=== PATIENT | male | born 1995 | race Two or more races ===

== ENCOUNTER 2017-10-16 23:26 | Emergency (ER) | payer BC, OTHER ==
[2017-10-17 02:23] VITALS: BP 135/81; PULSE 78; TEMP 98.1; BMI 26.4
--- NOTE | 2017-10-17 02:35 | PDOC ---
History of Present Illness - General History Source: Patient - History of Present Illness Initial Comments: 10/17/17 02:40 The patient is a 22 year old male, with no significant past medical history, who presents to the emergency department with vomiting and epigastric discomfort since 10/13/17. The patient reports feeling as if anything he takes PO gets stuck in his epigastric region. He reports nausea and vomiting with eating or drinking. He states he hasnt eaten much since the onset of his symptoms. He denies chest pain, shortness of breath, headache and dizziness. He denies fever, chills, diarrhea and constipation. He denies dysuria, frequency, urgency and hematuria. Allergies: NKDA Social history: social ETOH consumption <Neelam Kumar - Last Filed: 10/17/17 06:02> - General History Source: Patient <Brock Ceja - Last Filed: 10/17/17 06:17> - General Chief Complaint: Pain Stated Complaint: VOMITING Time Seen by Provider: 10/17/17 02:31 Past History <Neelam Kumar - Last Filed: 10/17/17 06:02> - Suicide/Smoking/Psychosocial Hx Smoking Status: No Smoking History: Never smoked Have you smoked in the past 12 months: No Number of Cigarettes Smoked Daily: 0 Information on smoking cessation initiated: No Hx Alcohol Use: No Drug/Substance Use Hx: No <Brock Ceja - Last Filed: 10/17/17 06:17> - Past Medical History Allergies/Adverse Reactions: Allergies Allergy/AdvReac Type Severity Reaction Status Date / Time No Known Allergies Allergy Verified 10/17/17 02:20 Home Medications: Ambulatory Orders No Home Medications 0 dose .ROUTE UTDICT 12/07/12 Oxycodone HCl/Acetaminophen [Percocet 5-325 mg Tablet] 1 - 2 tab PO Q4H #20 tablet 12/07/12 Penicillin V Potassium [Pen Vee K -] 500 mg PO QID #40 tablet 12/07/12 Ondansetron [Zofran *Odt*] 4 mg SL TID #30 od.tablet 10/17/17 Pantoprazole Sodium [Protonix] 40 mg PO DAILY #30 tablet. 10/17/17 Review of Systems - Review of Systems Able to Perform ROS?: Yes Comments:: 10/17/17 02:40 CONSTITUTIONAL: Absent: fever, chills, diaphoresis, generalized weakness, malaise, loss of appetite HEENT: Absent: rhinorrhea, nasal congestion, throat pain, throat swelling, difficulty swallowing, mouth swelling, ear pain, eye pain, visual Changes CARDIOVASCULAR: Absent: chest pain, syncope, palpitations, irregular heart rate, lightheadedness , peripheral edema RESPIRATORY: Absent: cough, shortness of breath, dyspnea with exertion, orthopnea, wheezing, stridor, hemoptysis GASTROINTESTINAL: (+) epigastric discomfort with eating, nausea, vomiting. Absent: abdominal distension, diarrhea, constipation, melena, hematochezia GENITOURINARY: Absent: dysuria, frequency, urgency, hesitancy, hematuria, flank pain, genital pain MUSCULOSKELETAL: Absent: myalgia, arthralgia, joint swelling SKIN: Absent: rash, itching, pallor HEMATOLOGIC/IMMUNOLOGIC: Absent: easy bleeding, easy bruising, lymphadenopathy, frequent infections ENDOCRINE: Absent: unexplained weight gain, unexplained weight loss, heat intolerance, cold intolerance NEUROLOGIC: Absent: headache, focal weakness or paresthesias, dizziness, unsteady gait, seizure, mental status changes, bladder or bowel incontinence PSYCHIATRIC: Absent: anxiety, depression, suicidal or homicidal ideation, hallucinations. <Neelam Kumar - Last Filed: 10/17/17 06:02> *Physical Exam - Vital Signs Last Vital Signs Temp Pulse Resp BP Pulse Ox 98.1 F 78 22 135/81 99 10/17/17 02:18 10/17/17 02:18 10/17/17 02:18 10/17/17 02:18 10/17/17 02:18 - Physical Exam Comments: 10/17/17 02:41 GENERAL: Well developed, well nourished. Awake and alert. No acute distress. HEENT: Normocephalic, atraumatic. PERRLA, EOMI. No conjunctival pallor. Sclera are non- icteric. Moist mucous membranes. Oropharynx is clear. NECK: Supple. Full ROM. No JVD. Carotid pulses 2+ and symmetric, without bruits. No thyromegaly. No lymphadenopathy. CARDIOVASCULAR: Regular rate and rhythm. No murmurs, rubs, or gallops. Distal pulses are 2+ and symmetric. PULMONARY: No evidence of respiratory distress. Lungs clear to auscultation bilaterally. No wheezing, rales or rhonchi. ABDOMINAL: Soft. Non-tender. Non-distended. No rebound or guarding. No organomegaly. Normoactive bowel sounds. MUSCULOSKELETAL Normal range of motion at all joints. No bony deformities or tenderness. No CVA tenderness. EXTREMITIES: No cyanosis. No clubbing. No edema. No calf tenderness. SKIN: Warm and dry. Normal capillary refill. No rashes. No jaundice. NEUROLOGICAL: Alert, awake, appropriate. Cranial nerves 2-12 intact. Normoreflexic in the upper and lower extremities. Normal speech. Toes are down-going bilaterally. Gait is normal without ataxia. PSYCHIATRIC: Cooperative. Good eye contact. Appropriate mood and affect. <Neelam Kumar - Last Filed: 10/17/17 06:02> - Vital Signs Last Vital Signs Temp Pulse Resp BP Pulse Ox 98.1 F 78 22 135/81 99 10/17/17 02:18 10/17/17 02:18 10/17/17 02:18 10/17/17 02:18 10/17/17 02:18 <Brock Ceja - Last Filed: 10/17/17 06:17> ED Treatment Course - LABORATORY CBC & Chemistry Diagram: 10/17/17 03:05 10/17/17 03:05 - RADIOLOGY Radiograph Interpretation: EXAM: CT ABDOMEN AND PELVIS without contrast HISTORY: Epigastric pain. Rule out pancreatitis. COMPARISON: None. FINDINGS: Lung bases are clear. The visualized cardiac chambers are normal size and configuration. Normal liver, gallbladder, pancreas, spleen, adrenal glands and kidneys. The stomach and abdominal small and large bowel are normal. There is no aortic aneurysm. There is no significant retroperitoneal lymphadenopathy. The pelvic small and large bowel are normal. The appendix is normal. The urinary bladder and prostate gland are normal. No pelvic free fluid is identified. There is no significant pelvic lymphadenopathy. IMPRESSION: No evidence of acute pathology. Shaka Kenney MD 10/17/2017 05:34 EST <Neelam Kumar - Last Filed: 10/17/17 06:02> - LABORATORY CBC & Chemistry Diagram: 10/17/17 03:05 10/17/17 03:05 <Brock Ceja - Last Filed: 10/17/17 06:17> *DC/Admit/Observation/Transfer - Attestations Scribe Attestion: 10/17/17 02:41 Documentation prepared by Neelam Kumar, acting as medical territory manager for Brock Ceja DO <Neelam Kumar - Last Filed: 10/17/17 06:02> - Discharge Dispostion Admit: No <Brock Ceja - Last Filed: 10/17/17 06:17> Diagnosis at time of Disposition: Pancreatitis Qualifiers: Chronicity: acute Pancreatitis type: unspecified pancreatitis type Acute pancreatitis complication: no infection or necrosis Qualified Code(s): K85.90 - Acute pancreatitis without necrosis or infection, unspecified - Discharge Dispostion Disposition: HOME Condition at time of disposition: Stable - Prescriptions Prescriptions: Ondansetron [Zofran *Odt*] 4 mg SL TID #30 od.tablet Pantoprazole Sodium [Protonix] 40 mg PO DAILY #30 tablet.dr - Referrals Referrals: Nikita Aguilar MD [Staff Physician] - - Patient Instructions Printed Discharge Instructions: DI for Pancreatitis, Soft Diet Additional Instructions: tale medications as directed. Please follow up with GI as soon as possible. Avoid alcohol.
[2017-10-17] MEDS ORDERED: ONDANSETRON *ODT* 4 MG TABLET SL ONE (02:36)
[2017-10-17] MEDS ORDERED: PANTOPRAZOLE 40 MG TABLET (FP) PO ONE (02:37)
[2017-10-17] MEDS ORDERED: PANTOPRAZOLE 40 MG TABLET (FP) ONE (02:52)
[2017-10-17] MEDS ORDERED: ONDANSETRON *ODT* 4 MG TABLET ONE (02:52)
[2017-10-17 03:12] LABS: BASO % 0.3 % (0-2.0); EOS % 0.3 % (0-4.5); HEMATOCRIT 48.1 % (35.4-49); HEMOGLOBIN 16.3 GM/dL (11.7-16.9); LYMPH % 10.4 % (8-40); MCH 28.8 pg (25.7-33.7); MCHC 33.8 g/dl (32.0-35.9); MEAN CELL VOLUME 85.3 fl (80-96); MONO % 5.8 % (3.8-10.2); NEUT % 83.2 % (42.8-82.8); PLATELET COUNT 234 K/MM3 (134-434); RBC 5.64 M/mm3 (4.00-5.60); RDW 13.3 % (11.9-15.9); WHITE BLOOD COUNT 13.1 K/mm3 (4.0-10.0)
[2017-10-17 03:39] LABS: ALBUMIN 4.3 g/dl (3.4-5.0); ANION GAP 9 (8-16); BILIRUBIN,TOTAL 1.3 mg/dL (0.2-1.0); BLOOD UREA NITROGEN 16 mg/dL (7-18); CALCIUM 9.1 mg/dL (8.5-10.1); CHLORIDE 94 mmol/L (98-107); CO2 32 mmol/L (21-32); CREATININE 1.1 mg/dL (0.7-1.3); GLUCOSE,RANDOM 107 mg/dL (74-106); MAGNESIUM 2.4 mg/dL (1.8-2.4); POTASSIUM 3.4 mmol/L (3.5-5.1); SGOT/AST 13 U/L (15-37); SGPT/ALT 21 U/L (12-78); SODIUM 135 mmol/L (136-145); TOT PROT 8.3 g/dl (6.4-8.2)
[2017-10-17 03:40] LABS: ALK PHOS 99 U/L (45-117)
[2017-10-17 03:45] LABS: LIPASE 874 U/L (73-393)
== END 2017-10-17 06:35 | disposition home or self-care (01) ==
LOC: JER 23:26
DX: K85.90 Acute pancreatitis without necrosis or infection, unspecified (principal)
CPT/HCPCS: 36415; 74177-TC; 80053; 83690; 83735; 85025; 99281-25; 99283-25

== ENCOUNTER 2023-08-03 12:14 | Emergency (ER) | payer OTHER ==
[2023-08-03 12:32] VITALS: BP 119/65; PULSE 75; RESP 18; TEMP 98.3; BMI 31.6
[2023-08-03] MEDS ORDERED: ACETAMINOPHEN 500 MG TABLET (FP) PO ONE (13:20)
[2023-08-03] MEDS ORDERED: IBUPROFEN 600 MG TABLET (FP) PO ONE ×2 (13:20→13:40)
[2023-08-03] MEDS ORDERED: ACETAMINOPHEN 500 MG TABLET (FP) ONE (13:40)
== END 2023-08-03 14:00 | disposition home or self-care (01) ==
LOC: JERFT 12:14 → JER 12:14 → JERFT 14:00
DX: M25.571 Pain in right ankle and joints of right foot (principal); M54.50 Low back pain, unspecified; R10.9 Unspecified abdominal pain; V47.5XXA Car driver injured in collision with fixed or stationary object in traffic accident, initial encounter; Y92.410 Unspecified street and highway as the place of occurrence of the external cause
CPT/HCPCS: 99283-25